=== PATIENT | male | born 1995 | race Hispanic/Latino ===

== ENCOUNTER 2019-07-01 05:00 | Inpatient (IN) | payer BC, OTHER ==
[~2019-07-01] VITALS: Ht 182.9 cm; Wt 122.5 kg
[2019-07-01] MEDS ORDERED: ACETAMINOPHEN 325 MG TAB PO ONE (05:15)
[2019-07-01 05:35] LABS: BASOPHILS % 0.3 % (0.0-1.0); EOSINOPHILS # (AUTO) 0.2 (0.0-0.4); EOSINOPHILS % 1.3 % (0.0-6.0); HEMATOCRIT 48.2 % (38.2-49.6); HEMOGLOBIN 15.8 g/dL (14.0-18.0); LYMPHOCYTES # (AUTO) 3.9 (1.0-3.2); LYMPHOCYTES % 34.1 % (18.0-39.1); MEAN CORPUSCULAR HEMOGLOBIN 29.3 pg (28-32); MEAN CORPUSCULAR HGB CONC 32.8 g/dL (31-35); MEAN CORPUSCULAR VOLUME 89.4 fL (81-99); MONOCYTES # (AUTO) 0.8 (0.2-0.8); MONOCYTES % 6.9 % (4.4-11.3); NEUTROPHILS # (AUTO) 6.6 (2.1-6.9); NEUTROPHILS % 56.9 % (38.7-80.0); PLATELET COUNT 246 x10e3/uL (140-360); RED BLOOD COUNT 5.39 x10e6/uL (4.3-5.7); RED CELL DISTRIBUTION WIDTH 13.1 % (11.7-14.4)
[2019-07-01 05:49] LABS: ANION GAP 12.6 mmol/L (8-16); BLOOD UREA NITROGEN 10 mg/dL (7-26); BUN/CREATININE RATIO 11 (6-25); CALCIUM 9.8 mg/dL (8.4-10.2); CARBON DIOXIDE 27 mmol/L (22-29); CHLORIDE 104 mmol/L (98-107); CREATININE, SERUM 0.92 mg/dL (0.72-1.25); EST GLOMERULAR FILTRATION RATE > 60 ML/MIN (60-); GLUCOSE 114 mg/dL (74-118); POTASSIUM 3.6 mmol/L (3.5-5.1); SODIUM 140 mmol/L (136-145)
[2019-07-01 05:52] LABS: INFLUENZAE A&B ANTIGEN (RAPID) NEGATIVE (NEGATIVE); STREPTOCOCCUS GRP A ANTIGEN NEGATIVE (NEGATIVE)
--- NOTE | 2019-07-01 06:21 | Diagnostic Imaging Report ---
EXAMINATION: CHEST SINGLE (PORTABLE) INDICATION: Short of breath, fever COMPARISON: None FINDINGS: TUBES and LINES: None. LUNGS: Normal lung volumes. Subtle left lower lung haziness. PLEURA: No pleural effusion or pneumothorax. HEART AND MEDIASTINUM: The cardiomediastinal silhouette is unremarkable. BONES AND SOFT TISSUES: No acute osseous lesion. Soft tissues are unremarkable. Left clavicular plate and screw fixation hardware intact. UPPER ABDOMEN: No free air under the diaphragm. IMPRESSION: Subtle left lower lung haziness, possibly due to atelectasis or pneumonia. Signed by: Juan Francisco Cox DO on 07/01/2019 6:18 AM
[2019-07-01] MEDS ORDERED: SODIUM CHLORIDE 0.9% 1000ML 1,000 ML IV ONE (06:30)
[2019-07-01] MEDS ORDERED: SODIUM CHLORIDE 0.9% 1000ML 1,000 ML ONE (06:38)
--- NOTE | 2019-07-01 06:41 | NUR ---
H&P cc: sob/chest discomfort HPI; Pt recently returned from [place] 2 weeks ago, now chest discomfort and sob. No cough; Here febrile and tachycardic; XR shows L. PNA. 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
[2019-07-01] MEDS ORDERED: DOCUSATE SODIUM 100 MG CAP PO PRN (06:45)
[2019-07-01] MEDS ORDERED: ALPRAZOLAM 0.25 MG TAB PO PRN (06:45)
[2019-07-01] MEDS ORDERED: ZOLPIDEM TARTRATE 5 MG TAB PO PRN (06:45)
[2019-07-01] MEDS ORDERED: BENZONATATE 100 MG CAP PO PRN (06:45)
[2019-07-01] MEDS ORDERED: ONDANSETRON HCL INJ 2MG/ML 2ML 2 MG/ML VIAL IV PRN (06:45)
[2019-07-01] MEDS ORDERED: ALBUTEROL/IPRATROPIUM 3 ML NEB NEB PRN (06:45)
[2019-07-01] MEDS ORDERED: ACETAMINOPHEN 325 MG TAB PO PRN (06:45)
[2019-07-01] MEDS ORDERED: GUAIFENESIN/DEXTROMETHORPHAN LIQD 5 ML UDC NG PRN (06:45)
--- OUTSIDE RECORDS SUMMARY | 2019-07-01 06:45 | XMS REPORT ---
Author Author [facility] Address Unknown Phone Unavailable Care Team Providers Care Barber Name Role Phone Nino VENTURA Unavailable Unavailable Problems This patient has no known problems. Allergies, Adverse Reactions, Alerts This patient has no known allergies or adverse reactions. Medications This patient has no known medications. Results Test Description Test Time Test Comments Text Results Atomic Results Result Comments CHEST SINGLE (PORTABLE) 2019-07-01 06:14:00 [facility] [address] [address] Patient Name: TEDDY VALENTINO MR #: [id number] : 1995 Age/Sex: 24/M Req #: [id number] Adm Physician: Ordered by: GRETCHEN VENTURA MD Report #: [id number] Location: ER Room/Bed: Procedure: [id number] DX/CHEST SINGLE (PORTABLE) Exam Date: 07/01/19 Exam Time: 05 REPORT STATUS: Signed EXAMINATION: CHEST SINGLE (PORTABLE) INDICATION: Short of breath, fever COMPARISON: None FINDINGS: TUBES and LINES: None. LUNGS: Normal lung volumes. Subtle left lower lung haziness. PLEURA: No pleural effusion or pneumothorax. HEART AND MEDIASTINUM: The cardiomediastinal silhouette is unremarkable. BONES AND SOFT TISSUES: No acute osseous lesion. Soft tissues are unremarkable. Left clavicular plate and screw fixation hardware intact. UPPER ABDOMEN: No free air under the diaphragm. IMPRESSION: Subtle left lower lung haziness, possibly due to atelectasis or pneumonia. Signed by: Juan Francisco Cox DO on 07/01/2019 6:18 AM Dictated By: JUAN FRANCISCO COX DO 7 Transcribed By: RICHMOND on 07/01/19617 COPY TO: GRETCHEN VENTURA MD
[2019-07-01] MEDS: CEFTRIAXONE SOD 1 GM/NS 50 ML 50 ML IV SCH (06:51)
[2019-07-01 07:09] LABS: CHOL/HDL RATIO 3.9 (3.9-4.7)
[2019-07-01] MEDS: AZITHROMYCIN 500MG/NS 250 ML 250 ML IV SCH (07:14)
[2019-07-01] MEDS: FAMOTIDINE 20 MG TAB PO SCH ×2 (07:55→16:42)
--- NOTE | 2019-07-01 09:04 | NUR ---
CONSULT [id number]
[2019-07-01 09:30] VITALS: BP 154/81
[2019-07-01 09:50] VITALS: BP 154/81
--- NOTE | 2019-07-01 11:42 | Consultation ---
DATE OF CONSULTATION: REASON FOR CONSULTATION: Fever, tachycardia, rule out COVID-19 viral infection, leukocytosis. HISTORY OF PRESENT ILLNESS: This patient is very pleasant 24-year-old male, denies past medical history. He does have underlying history of anxiety. He tells me he does get episodes of tachycardia. He presented with 3 days of tachycardia, not feeling well, feeling really bad. The patient denies specific fever, but he felt feverish. Denies cough. The patient came to emergency room. In the emergency room, he was evaluated, but it was noted that his heart rate is 130s, so he was admitted for further workup. The patient who is currently lying in bed comfortably. PAST MEDICAL HISTORY: Obesity, anxiety and tachycardia. PAST SURGICAL HISTORY: Denies. ALLERGIES: . SOCIAL HISTORY: There is no smoking, drug abuse, or alcohol abuse. FAMILY HISTORY: Unremarkable. REVIEW OF SYSTEMS: Besides tachycardia, not feeling well, feeling feverish. LABORATORY DATA: White count 11.53, hemoglobin 15.8, his platelet 146. The lymphocyte was 3.9. COVID-19 is still pending. His influenza A and B screen was negative. Sodium 140, potassium 3.6, creatinine 0.92. Chest x-ray was done and showed septal left lower lobe haziness, possibly pneumonia. PHYSICAL EXAMINATION: GENERAL: He is currently alert, oriented, does not seem to be acute distress. VITAL SIGNS: Stable, currently afebrile. HEENT: He is not icteric. NECK: Supple. CHEST: Clear. COR: S1, S2. No S3, S4 or murmurs. ABDOMEN: Soft. Bowel sounds present. No tenderness. EXTREMITIES: No edema. SKIN: No rash. IMPRESSION: 1. Tachycardia. 2. Community-acquired pneumonia. 3. Concerned about viral pneumonia. The patient comes in mid of COVID-19. We will put him on droplet isolation until we get the test. We will give Rocephin, azithromycin, IV fluid. He may need Cardiology Evaluation. EKG, echocardiogram, thyroid panel. We will follow. MD ISIDORO Syed/CATALINA /[id number]
[2019-07-01 13:00] VITALS: BP 158/81
[2019-07-01] MEDS ORDERED: IPRATROPIUM/ALBUTEROL SULFATE 4 GM INH INH PRN (14:00)
--- NOTE | 2019-07-01 14:23 | Consultation ---
DATE OF CONSULTATION: Pulmonary Critical Care Consultation CHIEF COMPLAINT: Cough and lightheadedness. HISTORY OF PRESENT ILLNESS: The patient is a 24-year-old man. He did use an inhaler as a small child, but has not used any inhalers in the past 10 years. He apparently noticed some lightheadedness and cough at home. He denied any fevers. When he came to the emergency department, he was found to have a low-grade temperature of 100. PAST MEDICAL HISTORY: 1. Possible history of asthma as a child. 2. No prior history of heart problems. PAST SURGICAL HISTORY: Noncontributory. FAMILY HISTORY: Noncontributory. ALLERGIES: THE PATIENT IS ALLERGIC TO PHENYLEPHRINE AND CHLORPHENIRAMINE REVIEW OF SYSTEMS: He denied fevers at home, although he did have some fever here in the hospital. He does not complain of headache or neck pain. He has not had chest pain. He did note some cough but no dyspnea. He denies any wheezing. He does not complain of abdominal pain. He has no nausea or vomiting. He does not complain of any leg swelling. PHYSICAL EXAMINATION: VITAL SIGNS: The blood pressure is 154/81, saturation is 98%. The pulse is 120 to 130 and the temperature is 99.9. HEENT: Shows no facial swelling or erythema. LYMPHATIC: Shows no submandibular, cervical, or supraclavicular adenopathy. CARDIAC: Reveals tachycardia with a normal S1 and S2. LUNGS: Auscultation of lungs reveals clear breath sounds bilaterally. There is no wheezing. ABDOMEN: Soft and nontender. There is no rebound or guarding. EXTREMITIES: Show no leg edema or calf tenderness. There is no cyanosis or clubbing. SKIN: Shows no rashes. NEUROLOGICAL: Shows no focal abnormalities. LABORATORY DATA: BUN, creatinine, and electrolytes are within normal limits. White blood cell count is 11.5 and the platelet count is 246. Hemoglobin is 15.4. RADIOGRAPHIC DATA: Chest x-ray shows a possible left lower lobe haziness. IMPRESSION: 1. Atypical pneumonia. 2. Tachycardia. 3. Possible COVID-19 infection. PLAN: 1. Continue Zithromax. 2. Judicious use of IV fluids. 3. Monitor heart rate and oxygen saturation. 4. Await coronavirus testing. MD JOSE Garcia/PATYL /[id number]
[2019-07-01 16:30] VITALS: BP 141/75
--- NOTE | 2019-07-01 19:10 | NUR ---
Report received from morning nurse. Pt with no acute distress.
--- NOTE | 2019-07-01 19:20 | NUR ---
Received lab report, Pt with negative SARS-CoV-2 results.
--- NOTE | 2019-07-01 20:34 | NUR ---
PAGE PLACED FOR MD MCKINLEY CONCERNING PT LAB RESULTS FOR CORONAVIRUS. WAITING FOR CALLBACK.
--- NOTE | 2019-07-01 20:45 | NUR ---
RECEIVED PT SITTING ON SIDE OF BED. PT IS AAOX3, RR EVEN AND NON-LABORED, ON ROOM AIR. NO S/SX OF DISTRESS NOTED. PT ASSISTED TO BATHROOM AND BACK TO BED. LEFT PT SITTING ON SIDE OF BED, BED IN LOW LOCKED POSITION, SIDE RAILS UPX2, CALL LIGHT AND PHONE WITHIN REACH.
[2019-07-01 20:48] VITALS: BP 159/82
--- NOTE | 2019-07-01 20:56 | NUR ---
PAGE PLACED FOR MD MCLAUGHLIN CONCERNING COVID-19 RESULTS. WAITING FOR CALLBACK.
--- NOTE | 2019-07-01 21:00 | NUR ---
SPOKE WITH MD MCLAUGHLIN CONCERNING TEST RESULTS. NEW ORDERS RECEIVED TO TRANSFER OFF COVID UNIT TO [facility] AND REMOVE DROPLET PRECAUTIONS. PARKING METER SERVICER NOTIFIED.
--- NOTE | 2019-07-01 21:06 | NUR ---
SPOKE WITH MD MCKINLEY CONCERNING NEW ORDERS RECEIVED FROM MD MCLAUGHLIN. MD MCKINLEY AGREES WITH ORDERS AND OK TO TRANSFER PT TO FLOOR. NOTIFIED MD MCKINLEY ABOUT CARDIAC MARKERS NOT BEING DRAWN DURING DAY. ORDERS RECEIVED TO DRAW ONE SET OF CARDIAC MARKERS AND D/C THE THIRD SET.
--- NOTE | 2019-07-01 21:48 | NUR ---
BLOOD DRAWN FROM (R) FA WITH BUTTERFLY NEEDLE AND VACUTAINER. GREEN AND PURPLE TOP COLLECTED AND DELIVERED TO LABORATORY.
[2019-07-01 22:17] LABS: CREATINE KINASE MB 1.1 ng/mL (0-5.0)
--- NOTE | 2019-07-01 23:33 | NUR ---
PT TRANSPORTED TO ROOM 199. PT IN STABLE CONDITION, NO S/SX OF DISTRESS NOTED. TELEMETRY REMOVED AND RETURNED TO RIPENING ROOM ATTENDANT. IN ROOM ASSESSMENT RN TO BE APPLIED TO PATIENT
--- NOTE | 2019-07-01 23:36 | NUR ---
Received the patient to the unit.v/s stable.afebrile.telemetry showing sinus rhythm.iv to right ac#20 is patent.aaox4.self ambulates.assessment done.no resp distress.no pain voiced.oriented to the unit.bed locked and in lowest position.call light within reach.
[2019-07-02] VITALS (9 sets, daily range): BP systolic 125–136; BP diastolic 66–86
[2019-07-02 04:41] LABS: BASOPHILS % 0.3 % (0.0-1.0); EOSINOPHILS # (AUTO) 0.1 (0.0-0.4); EOSINOPHILS % 0.7 % (0.0-6.0); HEMATOCRIT 44.9 % (38.2-49.6); HEMOGLOBIN 14.3 g/dL (14.0-18.0); LYMPHOCYTES # (AUTO) 3.2 (1.0-3.2); LYMPHOCYTES % 31.1 % (18.0-39.1); MEAN CORPUSCULAR HEMOGLOBIN 28.8 pg (28-32); MEAN CORPUSCULAR HGB CONC 31.8 g/dL (31-35); MEAN CORPUSCULAR VOLUME 90.5 fL (81-99); MONOCYTES # (AUTO) 0.7 (0.2-0.8); MONOCYTES % 7.2 % (4.4-11.3); NEUTROPHILS # (AUTO) 6.2 (2.1-6.9); NEUTROPHILS % 60.3 % (38.7-80.0); PLATELET COUNT 249 x10e3/uL (140-360); RED BLOOD COUNT 4.96 x10e6/uL (4.3-5.7); RED CELL DISTRIBUTION WIDTH 13.2 % (11.7-14.4)
[2019-07-02 05:11] LABS: ALANINE AMINOTRANSFERASE 41 IU/L (0-55); ALBUMIN 3.8 g/dL (3.5-5.0); ALBUMIN/GLOBULIN RATIO 1.1 (0.8-2.0); ALKALINE PHOSPHATASE 78 IU/L (40-150); ANION GAP 10.7 mmol/L (8-16); BLOOD UREA NITROGEN 7 mg/dL (7-26); BUN/CREATININE RATIO 8 (6-25); CALCIUM 9.6 mg/dL (8.4-10.2); CARBON DIOXIDE 25 mmol/L (22-29); CHLORIDE 107 mmol/L (98-107); CREATININE, SERUM 0.83 mg/dL (0.72-1.25); EST GLOMERULAR FILTRATION RATE > 60 ML/MIN (60-); GLUCOSE 98 mg/dL (74-118); POTASSIUM 3.7 mmol/L (3.5-5.1); SODIUM 139 mmol/L (136-145)
--- NOTE | 2019-07-02 05:26 | NUR ---
IM- progress note O/N see below ROS: no N/V/D/anosmia/dizziness/SIMMS/skin rash/back pain/focal limb weakness v/s; revd PE tired appearing anicteric ns1s2 mod bs soft nt nd no e/t skin dry flat affect a&ox3; rodriguez labs/meds revd A/P: Left PNA- IV azithromycin/ceftriaxone; screen for COVID19 Sepsis- ivf and IV abx Obesity- hba1c/lipids BMI 36.6- as above Prop: pepcid; scd dispo: f/u lab testing 4-18 Coronavirus test negative; Tn negative x2; continue IV abx and IVF for sepsis and PNA. Nik Veliz MD, PhD.
[2019-07-02] MEDS: CEFTRIAXONE SOD 1 GM/NS 50 ML 50 ML IV SCH (05:47)
[2019-07-02] MEDS: AZITHROMYCIN 500MG/NS 250 ML 250 ML IV SCH (06:25)
--- NOTE | 2019-07-02 06:51 | NUR ---
Bed side shift report given to oncoming Rn.stable condition.
[2019-07-02] MEDS: FAMOTIDINE 20 MG TAB PO SCH ×2 (07:27→16:30)
--- NOTE | 2019-07-02 20:30 | NUR ---
PATIENT RESTING IN BED COMFORTABLY AOX4, NO SIGNS OF RESPIRATORY DISTRESS NOTED. HEAD OF BED IS ELEVATED AND PATIENT VOICES NO PAIN AT THIS TIME. BED IS IN LOWEST POSITION, BOTH SIDE RAILS ARE UP, CALL LIGHT IS WITHIN EASY REACH, WILL CONTINUE TO MONITOR.
[2019-07-03 04:39] VITALS: BP 134/77
[2019-07-03] MEDS: CEFTRIAXONE SOD 1 GM/NS 50 ML 50 ML IV SCH (05:33)
[2019-07-03] MEDS ORDERED: ZITHROMAX500 MG PO (05:52)
[2019-07-03] MEDS ORDERED: KEFLEX500 MG PO (05:52)
[2019-07-03] MEDS: AZITHROMYCIN 500MG/NS 250 ML 250 ML IV SCH (06:06)
--- NOTE | 2019-07-03 06:55 | NUR ---
Received patient lying in bed with eyes open. Respiration even and unlabored without SOB. Call light in reach.
--- NOTE | 2019-07-03 07:05 | NUR ---
Received patient lying in bed with eyes open. Respiration even and unlabored without SOB. Call light in reach. Addendum: 07/03/19 at 0824 by Olivia Nuno RN Error
[2019-07-03 07:40] VITALS: BP 135/175
--- NOTE | 2019-07-03 08:32 | NUR ---
PIV to right Ac discontinued with catheter intact, no bleeding noted. Transported via wheelchair to private vehicle with all belongings taken.
== END 2019-07-03 08:32 | disposition home or self-care (01) | DRG 871 ==
LOC: ER 05:00 → ERHOLD 06:40 → IMCU 10:02
PROVIDERS: ADMIT Internal Medicine; ATTEND Internal Medicine
DX: A41.9 Sepsis, unspecified organism (principal); J18.9 Pneumonia, unspecified organism; F41.9 Anxiety disorder, unspecified; Z83.3 Family history of diabetes mellitus; Z82.49 Family history of ischemic heart disease and other diseases of the circulatory system; Z88.8 Allergy status to other drugs, medicaments and biological substances; E66.9 Obesity, unspecified; Z68.36 Body mass index [BMI] 36.0-36.9, adult; R00.0 Tachycardia, unspecified
CPT/HCPCS: 36415; 71045; 80048; 80053; 80061; 82550; 82553; 83036; 83518; 84484; 85025; 85379; 87040; 87070; 87400; 87635; 93005; 99284; J0456; J0696; J2405; J7030

== ENCOUNTER 2019-07-20 22:03 | Emergency (ER) | payer BC ==
[~2019-07-20] VITALS: Ht 182.9 cm; Wt 122.5 kg
[~2019-07-20 22:03] MED LIST: KEFLEX500 MG PO; ZITHROMAX500 MG PO
--- NOTE | 2019-07-20 23:58 | Diagnostic Imaging Report ---
EXAMINATION: CHEST 2 VIEWS INDICATION: Short of breath COMPARISON: Chest x-ray 07/01/2019 FINDINGS: TUBES and LINES: None. LUNGS: Normal lung volumes. Lungs are clear. No consolidations. PLEURA: No pleural effusion or pneumothorax. HEART AND MEDIASTINUM: The cardiomediastinal silhouette is unremarkable. BONES AND SOFT TISSUES: Degenerative changes in the spine and shoulders. Soft tissues are unremarkable. Partially visualized left clavicle fixation hardware. UPPER ABDOMEN: No free air under the diaphragm. IMPRESSION: No acute thoracic radiographic abnormality. Signed by: Juan Francisco Cox DO on 07/20/2019 11:55 PM
[2019-07-21] MEDS ORDERED: AMMONIA AROMATIC INHAL 0.33 ML AMP INH ONE (01:38)
== END 2019-07-21 01:02 | disposition home or self-care (01) ==
LOC: ER 22:03
DX: R06.09 Other forms of dyspnea (principal)
CPT/HCPCS: 71046; 99283

== ENCOUNTER 2019-08-09 20:06 | Emergency (ER) | payer BC ==
[~2019-08-09] VITALS: Ht 182.9 cm; Wt 122.5 kg
--- OUTSIDE RECORDS SUMMARY | 2019-08-09 20:07 | XMS REPORT ---
Author Author [facility] t Organization [facility] Address [address] [place] [address] [facility]. [address] [place] [address] Phone Unavailable Care Team Providers Care Legal Financial Specialist Name Role Phone MD SYDNI MCKINLEY PCP Nino VENTURA Attphys Unavailable Payers Payer Name Policy Type Policy Number Effective Date Expiration Date [id number] 2019 00:00:00 [facility] Cdc Review [id number] [facility] Advance Directives Directive Decision Effective Date Termination Date Comments Sour ce Yes N/A [facility] Problems Condition Name Condition Details Condition Category Status Onset Date Resolution Date Last Treatment Date Treating Clinician Comments Source Pneumonia Pneumonia Problem Active [facility] Allergies, Adverse Reactions, Alerts Allergy Name Allergy Type Status Severity Reaction(s) Onset Date Inacti ve Date Treating Clinician Comments Source Phenylephrine Allergy to substance Active Moderate 2019-07-01 00:0 0:00 [facility] Chlorpheniramine Allergy to substance Active Moderate 2019-06-15 7 00:00:00 [facility] Social History Social Habit Start Date Stop Date Quantity Comments Source Sex Assigned At 1995 00:00:00 1995 00:00:00 Male [facility] Medications Ordered Medication Name Filled Medication Name Start Date Stop Da te Current Medication? Ordering Clinician Indication Dosage Frequency Signature (SIG) Comments Components Source Azithromycin (Zithromax) 500 Mg TABLET Azithromycin (Zithrom ax) 500 Mg TABLET 2019-07-03 05:52:00 Yes 500 [facility] Cephalexin Monohydrate (Keflex) 500 Mg CAPSULE Cephale murphy Monohydrate (Keflex) 500 Mg CAPSULE 2019-07-03 05:52:00 Yes 500 [facility] Vital Signs Vital Name Observation Time Observation Value Comments Source Weight 2019-07-20 22:20:00 270 [lb_av] [facility] BMI (Body Mass Index) 2019-07-20 22:20:00 36.6 kg/m2 [facility] Body Temperature 2019-07-03 07:40:00 98.2 [degF] [facility] Procedures Procedure Date / Time Performed Performing Clinician [facility] e X-ray of chest, two views 2019-07-20 00:00:00 [facility] Plan of Care Planned Activity Planned Date Details Comments Source Goal Patient referral [code = 2205675 ] [facility] Instructions Dyspnea [facility] Encounters Start Date/Time End Date/Time Encounter Type Admission Type [facility] Facility Care Department Encounter ID Source 2019-07-20 22:03:00 2019-07-21 01:02:00 Departed Emergency Room 1 [facility] [id number] [facility] 2019-07-01 06:40:00 2019-07-03 08:32:00 Discharged Inpatient 1 VENTURA, GRETCHEN [facility] [id number] [facility] Results Test Description Test Time Test Comments Results Result Comments Source CHEST 2 VIEWS 2019-07-20 23:54:00 [facility] [address] [address] Patient Name: TEDDY VALENTINO JR MR #: [id number] : 1995 Age/Sex: 24/M Req #: [id number] Adm Physician: Ordered by: GRETCHEN VENTURA MD Report #: [id number] Location: ER Room/Bed: Procedure: [id number] DX/CHEST 2 VIEWS Exam Date: 07/20/19 Exam Time: 2250 REPORT STATUS: Signed EXAMINATION: CHEST 2 VIEWS INDICATION: Short of breath COMPARISON: Chest x-ray 07/01/2019 FINDINGS: TUBES and LINES: None. LUNGS: Normal lung volumes. Lungs are clear. No consolidations. PLEURA: No pleural effusion or pneumothorax. HEART AND MEDIASTINUM: The cardiomediastinal silhouette is unremarkable. BONES AND SOFT TISSUES: Degenerative changes in the spine and shoulders. Soft tissues are unremarkable. Partially visualized left clavicle fixation hardware. UPPER ABDOMEN: No free air under the diaphragm. IMPRESSION: No acute thoracic radiographic abnormality. Signed by: Juan Francisco Cox DO on 07/20/2019 11:55 PM Dictated By: JUAN FRANCISCO COX DO 54 Transcribed By: RICHMOND on 07/20/192354 COPY TO: GRETCHEN VENTURA MD Blood leukocytes automated count (number/volume) 2019-07-02 04:15:00 Test Item White Blood Count (test code = 6690-2) 10.32 [facility] erythrocytes automated count (number/volume)2019-07-02 04:15:00* Test Item Value Reference Range Interpretation Comments Red Blood Count (test code = 789-8) 4.96 [facility] hemoglobin measurement (moles/volume)2019-07-02 04:15:00* Test Item Value Reference Range Interpretation Comments Hemoglobin (test code = 93330-3) 14.3 [facility] blood hematocrit (volume fraction)2019-07-02 04:15:00* Test Item Value Reference Range Interpretation Comments Hematocrit (test code = 4544-3) 44.9 [facility] erythrocyte mean corpuscular [id number] 04:15:00* Test Item Value Reference Range Interpretation Comments Mean Corpuscular Volume (test code = 787-2) 90.5 [facility] mean corpuscular hemoglobin (mass per erythrocyte)2019-07-02 04:15:00* Test Item Value Reference Range Interpretation Comments Mean Corpuscular Hemoglobin (test code = 785-6) 28.8 [facility] eryth[facility] mean corpuscular hemoglobin concentration measurement (mass/volume)2019-07-02 04:15:00* Test Item Value Reference Range Interpretation Comments Mean Corpuscular Hemoglobin Concent (test code = 786-4) 31.8 [facility] HospitalRDW CrqRu-Ynf3591-32-18 04:15:00* Test Item Value Reference Range Interpretation Comments Red Cell Distribution Width (test code = 28385-5) 13.2 [facility] blood platelet count (count/volume)2019-07-02 04:15:00* Test Item Value Reference Range Interpretation Comments Platelet Count (test code = 777-3) 249 [facility] neutrophil count as percentage of total cymsmenhqx3120-15-01 04:15:00* Test Item Value Reference Range Interpretation Comments Neutrophils (%) (Auto) (test code = 29597-3) 60.3 [facility] lymphocyte count as percentage ot total jqylruxfxb4941-90-64 04:15:00* Test Item Value Reference Range Interpretation Comments Lymphocytes (%) (Auto) (test code = 736-9) 31.1 [facility] blood monocyte count as percentage of total efriuvokrg9859-82-82 04:15:00* Test Item Value Reference Range Interpretation Comments Monocytes (%) (Auto) (test code = 5905-5) 7.2 [facility] blood eosinophil count as percentage of total gfaoknspfw6235-13-36 04:15:00* Test Item Value Reference Range Interpretation Comments Eosinophils (%) (Auto) (test code = 713-8) 0.7 [facility] basophil count as percentage of total baxlnixnhs6127-71-17 04:15:00* Test Item Value Reference Range Interpretation Comments Basophils (%) (Auto) (test code = 706-2) 0.3 [facility] HospitalFluoroscopic procedure less than one hour tfakknox7503-27-66 04:15:00* Test Item Value Reference Range Interpretation Comments IM GRANULOCYTES % (test code = IM GRANULOCYTES %) 0.4 [facility] blood neutrophil count 2019-07-02 04:15:00* Test Item Value Reference Range Interpretation Comments Neutrophils # (Auto) (test code = 751-8) 6.2 [facility] HospitalBlood lymphocytes count (number/volume) 2019-07-02 04:15:00* Test Item Value Reference Range Interpretation Comments Lymphocytes # (Auto) (test code = 04326-1) 3.2 [facility] monocytes automated count (number/volume)2019-07-02 04:15:00* Test Item Value Reference Range Interpretation Comments Monocytes # (Auto) (test code = 742-7) 0.7 [facility]Autom[facility] blood eosinophil count 2019-07-02 04:15:00* Test Item Value Reference Range Interpretation Comments Eosinophils # (Auto) (test code = 711-2) 0.1 [facility]Autom[facility] blood basophil count (count/volume)2019-07-02 04:15:00* Test Item Value Reference Range Interpretation Comments Basophils # (Auto) (test code = 704-7) 0.0 [facility] HospitalFluoroscopic procedure less than one hour sbzfbztd6400-51-47 04:15:00* Test Item Value Reference Range Interpretation Comments Absolute Immature Granulocyte (auto (zoila t code = Absolute Immature Granulocyte (auto) 0.04 [facility] sodium measurement (moles/volume)2019-07-02 04:15:00* Test Item Value Reference Range Interpretation Comments Sodium Level (test code = 2951-2) 139 [facility] potassium measurement (moles/volume)2019-07-02 04:15:00* Test Item Value Reference Range Interpretation Comments Potassium Level (test code = 2823-3) 3.7 [facility] chloride measurement (moles/volume)2019-07-02 04:15:00* Test Item Value Reference Range Interpretation Comments Chloride Level (test code = 2075-0) 107 [facility] or plasma carbon dioxide, total measurement (moles/volume)2019-07-02 04:15:00* Test Item Value Reference Range Interpretation Comments Carbon Dioxide Level (test code = 2028-9) 25 [facility] Hospitaler[facility] or plasma anion exs9667-81-11 04:15:00* Test Item Value Reference Range Interpretation Comments Anion Gap (test code = 12853-6) 10.7 [facility] plasma urea nitrogen measurement (mass/volume)2019-07-02 04:15:00* Test Item Value Reference Range Interpretation Comments Blood Urea Nitrogen (test code = 3094-0) 7 [facility] creatinine measurement (mass/volume)2019-07-02 04:15:00* Test Item Value Reference Range Interpretation Comments Creatinine (test code = 2160-0) 0.83 [facility] plasma urea nitrogen/creatinine mass ioayr6427-55-82 04:15:00* Test Item Value Reference Range Interpretation Comments BUN/Creatinine Ratio (test code = 3097-3) 8 [facility] HospitalEstimated glomerular filtration rate (GFR) kfrexequfnnqx4566-61-36 04:15:00* Test Item Value Reference Range Interpretation Comments Estimat Glomerular Filtration Rate (test code = 090324153) > 60 [facility] HospitalGlucose fufitetpiof6066-67-54 04:15:00* Test Item Value Reference Range Interpretation Comments Glucose Level (test code = PRK3478) 98 [facility] calcium measurement (mass/volume)2019-07-02 04:15:00* Test Item Value Reference Range Interpretation Comments Calcium Level (test code = 27163-1) 9.6 [facility] plasma total bilirubin measurement (mass/volume)2019-07-02 04:15:00* Test Item Value Reference Range Interpretation Comments Total Bilirubin (test code = 1975-2) 0.9 [facility] HospitalFluoroscopic procedure less than one hour ilqveqoj8639-85-28 04:15:00* Test Item Value Reference Range Interpretation Comments Aspartate Amino Transf (AST/SGOT) (test code = Aspartate Amino Transf (AST/SGOT)) 19 [facility] or plasma alanine aminotransferase measurement (enzymatic activity/volume)2019-07-02 04:15:00* Test Item Value Reference Range Interpretation Comments Alanine Aminotransferase (ALT/SGPT) (test code = 1742-6) 41 [facility] plasma protein measurement (mass/volume)2019-07-02 04:15:00* Test Item Value Reference Range Interpretation Comments Total Protein (test code = 2885-2) 7.3 [facility] albumin measurement (mass/volume)2019-07-02 04:15:00* Test Item Value Reference Range Interpretation Comments Albumin (test code = 1751-7) 3.8 [facility] HospitalPlasma globulin measurement (mass/volume) 2019-07-02 04:15:00* Test Item Value Reference Range Interpretation Comments Globulin (test code = 92091-5) 3.5 [facility] or plasma albumin/globulin mass wvyop4712-74-02 04:15:00* Test Item Value Reference Range Interpretation Comments Albumin/Globulin Ratio (test code = 1759-0) 1.1 [facility] or plasma alkaline phosphatase measurement (enzymatic activity/volume)2019-07-02 04:15:00* Test Item Value Reference Range Interpretation Comments Alkaline Phosphatase (test code = 6768-6) 78 [facility] Hospitalerum or plasma creatine kinase measurement (enzymatic activity/volume)2019-07-01 21:41:00* Test Item Value Reference Range Interpretation Comments Creatine Kinase (test code = 2157-6) 99 [facility] Hospitalerum or plasma creatine kinase MB measurement (mass/volume)2019-07-01 21:41:00* Test Item Value Reference Range Interpretation Comments Creatine Kinase MB (test code = 90494-3) 1.10 [facility] HospitalTroponin I measurement by highly sensitive enzyme zzrcixilgum5408-45-28 21:41:00* Test Item Value Reference Range Interpretation Comments Troponin I (test code = 06972-8) 0.033 [facility] HospitalBlood veblghi5064-49-93 06:29:00* Test Item Value Reference Range Interpretation Comments Blood Culture (test code = 83879103) NO GROWTH AFTER 5 DAYS, FINAL REPORT [facility] HospitalFluoroscopic procedure less than one hour kzeaqpli5485-26-69 06:27:00* Test Item Value Reference Range Interpretation Comments Coronavirus (PCR) (test code = Coronavirus (PCR)) NOT DETECTED [facility] HospitalCHE[facility]INGLE ([facility]ABLE)2019-07-01 06:14:[address] [address] Patient Name: TEDDY VALENTINO JR MR #: [id number] : 1995 Age/Sex: 24/M Req #: [id number] Adm Physician: Ordered by: GRETCHEN VENTURA MD Report #: [id number] Location: ER Room/Bed: Procedur e: [id number] DX/CHEST SINGLE (PORTABLE) Exam Date: 07/01/19 Exam Time: 05 REPORT STAT US: Signed EXAMINATION: CHEST SINGLE (PORTABLE) INDICATION: Sh ort of breath, fever COMPARISON: None FINDINGS: TUBES a nd LINES: None. LUNGS: Normal lung volumes. Subtle left lower lung hazin ess. PLEURA: No pleural effusion or pneumothorax. HEART AND MEDI ASTINUM: The cardiomediastinal silhouette is unremarkable. BONES AND SOFT TISSUES: No acute osseous lesion. Soft tissues are unremarkable. Left clavi cular plate and screw fixation hardware intact. UPPER ABDOMEN: No free air under the diaphragm. IMPRESSION: Subtle left lower lung haziness, po ssibly due to atelectasis or pneumonia. Signed by: Juan Francisco Cox DO on 07/01/2019 6:18 AM Dictated By: JUAN FRANCISCO COX DO 7 Transcribed By: RICHMOND on 07/01/19617 COPY TO: GRETCHEN VENTURA MD Fluoroscopic procedure less than one hour rgklzmwo9298-09-41 05:28:00* Test Item Value Reference Range Interpretation Comments Hemoglobin A1c Percent (test code = Hemoglobin A1c Percent) 5.4 [facility] triglyceride measurement (mass/volume)2019-07-01 05:28:00* Test Item Value Reference Range Interpretation Comments Triglycerides Level (test code = 2571-8) 171 [facility]er[facility] plasma cholesterol measurement (mass/volume)2019-07-01 05:28:00* Test Item Value Reference Range Interpretation Comments Cholesterol Level (test code = 2093-3) 133 [facility] cholesterol in LDL measurement (mass/volume)2019-07-01 05:28:00* Test Item Value Reference Range Interpretation Comments LDL Cholesterol (test code = 2089-1) 65 [facility] cholesterol in HDL measurement (mass/volume)2019-07-01 05:28:00* Test Item Value Reference Range Interpretation Comments HDL Cholesterol (test code = 2085-9) 34 [facility] or plasma total cholesterol/cholesterol in HDL mass pcaox8502-36-51 05:28:00* Test Item Value Reference Range Interpretation Comments Cholesterol/HDL Ratio (test code = 9830-1) 3.9 [facility] HospitalFibrin D-dimer DDU measurement in platelet poor plasma (mass/volume)2019-07-01 05:18:00* Test Item Value Reference Range Interpretation Comments D-Dimer Quantitative (PE/DVT) (test code = 86455-9) < 100 [facility] HospitalInfluenza virus A and B antigen identification by rwdplpihbrjbqrfyna9759-58-49 05:16:00* Test Item Value Reference Range Interpretation Comments Influenza Virus Types A,B Antigen (test code = 30808-2) NEGATIVE [facility] Hospitaltreptococcus pyogenes antigen detection in btguvo8314-04-53 05:16:00* Test Item Value Reference Range Interpretation Comments Group A Streptococcus Screen (test code = 47463-9) NEGATIVE [facility]
[2019-08-09] MEDS ORDERED: SODIUM CHLORIDE 0.9% 1000ML 1,000 ML IV ONE (20:45)
[2019-08-09] MEDS ORDERED: ASPIRIN 81 MG CHEW TAB PO ONE (20:45)
[2019-08-09 20:53] LABS: BASOPHILS % 0.3 % (0.0-1.0); EOSINOPHILS # (AUTO) 0.1 (0.0-0.4); EOSINOPHILS % 1.3 % (0.0-6.0); HEMATOCRIT 47.2 % (38.2-49.6); HEMOGLOBIN 15.5 g/dL (14.0-18.0); LYMPHOCYTES # (AUTO) 2.1 (1.0-3.2); LYMPHOCYTES % 22.4 % (18.0-39.1); MEAN CORPUSCULAR HEMOGLOBIN 28.9 pg (28-32); MEAN CORPUSCULAR HGB CONC 32.8 g/dL (31-35); MEAN CORPUSCULAR VOLUME 87.9 fL (81-99); MONOCYTES # (AUTO) 0.7 (0.2-0.8); MONOCYTES % 7.5 % (4.4-11.3); NEUTROPHILS # (AUTO) 6.4 (2.1-6.9); NEUTROPHILS % 68.2 % (38.7-80.0); PLATELET COUNT 227 x10e3/uL (140-360); RED BLOOD COUNT 5.37 x10e6/uL (4.3-5.7); RED CELL DISTRIBUTION WIDTH 13.4 % (11.7-14.4)
--- NOTE | 2019-08-09 21:04 | Emergency Department Note ---
History of Present Illnes History of Present Illness Chief Complaint: Respiratory History of Present Illness This is a 24 year old male presents with c/o palpitations and sob for 1 hour, states he has anxiety, also reports taking a pre work out energy supplement earlier today . Historian: Patient Arrival Mode: Car Onset (how long ago): hour(s) (1) Location: chest Quality: palpitations, sob, anxiety Radiation: non-radiation Severity: moderate Onset quality: sudden Duration (how long): hour(s) (1) Progression: waxing and waning Chronicity: recurrent Context: recent illness Relieving factors: none Exacerbating factors: none Associated symptoms: denies other symptoms Past Medical/Family History Physician Review I have reviewed the patient's past medical and family history. Any updates have been documented here. Past Medical History Recent Fever: No Clinical Suspicion of Infectio: No New/Unexplained Change in Ment: No Past Medical History: None Past Surgical History: None Other Surgery: LT COLLAR BONE SX - PLATE PLACED Social History Smoking Cessation: Never Smoker Alcohol Use: None Any Illegal Drug Use: No Family History Family history of heart diseas: No Other Last Tetanus: UTD Review of Systems Review of Systems Constitutional: no symptoms EENTM: no symptoms Cardiovascular: as per HPI Respiratory: as per HPI Gastrointestinal: no symptoms Genitourinary: no symptoms Musculoskeletal: no symptoms Neurological: no symptoms Psychological: no symptoms Endocrine: no symptoms Hematological/Lymphatic: no symptoms Review of other systems All other systems reviewed and negative. Physical Exam Related Data Allergies: Coded Allergies: chlorpheniramine (Verified Allergy, Intermediate, 07/01/19) phenylephrine (Verified Allergy, Intermediate, 07/01/19) Triage Vital Signs Vital Signs Date Time Temp Pulse Resp B/P (MAP) Pulse Ox O2 Delivery O2 Flow Rate FiO2 08/09/19 20:35 98.2 115 18 125/93 99 Vital signs reviewed: Yes Physical Exam CONSTITUTIONAL Constitutional: well-developed, well-nourished, other (anxious) HENT HENT: normocephalic, atraumatic, oropharynx clear/moist, nose normal HENT L/R: left ext ear normal, right ext ear normal EYES Eyes: PERRL, conjunctivae normal NECK Neck: ROM normal PULMONARY Pulmonary: effort normal, breath sounds normal CARDIOVASCULAR Cardiovascular: regular rhythm, heart sounds normal, capillary refill normal, tachycardia (115) GASTROINTESTINAL Abdominal: soft, nontender, bowel sounds normal GENITOURINARY Genitourinary: exam deferred SKIN Skin: warm, dry MUSCULOSKELETAL Musculoskeletal: ROM normal NEUROLOGICAL Neurological: alert, oriented x 3, no gross motor or sensory deficits PSYCHOLOGICAL Psychological: mood/affect normal, judgement normal Results Laboratory Laboratory Laboratory Tests Test 08/09/19 20:51 08/09/19 20:44 Urine Color Yellow (YELLOW) Urine Clarity Clear (CLEAR) Urine pH 7.5 (5 - 7) Urine Specific [place] 1.020 (1.010-1.025) Urine Protein Negative (NEGATIVE) Urine Glucose (UA) Negative (NEGATIVE) Urine Ketones Negative (NEGATIVE) Urine Blood Negative (NEGATIVE) Urine Nitrite Negative (NEGATIVE) Urine Bilirubin Negative (NEGATIVE) Urine Urobilinogen 0.2 mg/dL (0.2 - 1) Urine Leukocyte Esterase Negative (NEGATIVE) Urine RBC None /HPF (0-5) Urine WBC None /HPF (0-5) Urine Epithelial Cells None /LPF (NONE) Urine Bacteria None /HPF (NONE) Urine Opiates Screen Negative (NEGATIVE) Urine Methadone Screen Negative (NEGATIVE) Urine Barbiturates Screen Negative (NEGATIVE) Urine Phencyclidine Screen Negative (NEGATIVE) Urine Amphetamines Screen Negative (NEGATIVE) Urine Methamphetamines Screen Negative (NEGATIVE) Urine Benzodiazepines Screen Negative (NEGATIVE) Urine Cocaine Screen Negative (NEGATIVE) Urine Cannabinoids Screen Negative (NEGATIVE) White Blood Count 9.44 x10e3/uL (4.8-10.8) Red Blood Count 5.37 x10e6/uL (4.3-5.7) Hemoglobin 15.5 g/dL (14.0-18.0) Hematocrit 47.2 % (38.2-49.6) Mean Corpuscular Volume 87.9 fL (81-99) Mean Corpuscular Hemoglobin 28.9 pg (28-32) Mean Corpuscular Hemoglobin Concent 32.8 g/dL (31-35) Red Cell Distribution Width 13.4 % (11.7-14.4) Platelet Count 227 x10e3/uL (140-360) Neutrophils (%) (Auto) 68.2 % (38.7-80.0) Lymphocytes (%) (Auto) 22.4 % (18.0-39.1) Monocytes (%) (Auto) 7.5 % (4.4-11.3) Eosinophils (%) (Auto) 1.3 % (0.0-6.0) Basophils (%) (Auto) 0.3 % (0.0-1.0) Neutrophils # (Auto) 6.4 (2.1-6.9) Lymphocytes # (Auto) 2.1 (1.0-3.2) Monocytes # (Auto) 0.7 (0.2-0.8) Eosinophils # (Auto) 0.1 (0.0-0.4) Basophils # (Auto) 0.0 (0.0-0.1) Absolute Immature Granulocyte (auto 0.03 x10e3/uL (0-0.1) D-Dimer Quantitative (PE/DVT) 0.74 ug/mLFEU (0.00-0.45) Sodium Level 141 mmol/L (136-145) Potassium Level 3.3 mmol/L (3.5-5.1) Chloride Level 107 mmol/L (98-107) Carbon Dioxide Level 22 mmol/L (22-29) Anion Gap 15.3 mmol/L (8-16) Blood Urea Nitrogen 10 mg/dL (7-26) Creatinine 1.01 mg/dL (0.72-1.25) Estimat Glomerular Filtration Rate > 60 ML/MIN (60-) BUN/Creatinine Ratio 10 (6-25) Glucose Level 99 mg/dL (74-118) Calcium Level 9.9 mg/dL (8.4-10.2) Total Bilirubin 0.8 mg/dL (0.2-1.2) Aspartate Amino Transf (AST/SGOT) 26 IU/L (5-34) Alanine Aminotransferase (ALT/SGPT) 52 IU/L (0-55) Alkaline Phosphatase 85 IU/L (40-150) Creatine Kinase 168 IU/L (30-200) Creatine Kinase MB 0.90 ng/mL (0-5.0) Troponin I 0.031 ng/mL (0-0.300) Total Protein 8.3 g/dL (6.5-8.1) Albumin 4.4 g/dL (3.5-5.0) Globulin 3.9 g/dL (2.3-3.5) Albumin/Globulin Ratio 1.1 (0.8-2.0) Laboratory Tests Test 08/09/19 20:44 Lab results reviewed: Yes Imaging Imaging results reviewed: Yes Impressions EXAMINATION: CHEST SINGLE (PORTABLE) INDICATION: Short of breath, palpitations COMPARISON: Chest x-ray 07/20/2019 FINDINGS: TUBES and LINES: None. LUNGS: Normal lung volumes. Lungs are clear. No consolidations. PLEURA: No pleural effusion or pneumothorax. HEART AND MEDIASTINUM: The cardiomediastinal silhouette is unremarkable. BONES AND SOFT TISSUES: No acute osseous lesion. Soft tissues are unremarkable. Intact left clavicle fixation hardware. UPPER ABDOMEN: No free air under the diaphragm. IMPRESSION: No acute thoracic radiographic abnormality. Signed by: Juan Francisco Cox DO on 08/09/2019 9:49 PM EXAM: CT Chest WITH contrast (PE Protocol) INDICATION: Hard time breathing, Palpitations, elevated d-dimer COMPARISON: None TECHNIQUE: Chest was scanned utilizing a multidetector helical scanner from the lung apex through the level of the diaphragm after administration of IV contrast. Thin section reconstructions were obtained with special concentration on the pulmonary arteries. Coronal and sagittal reformations were obtained. Pulmonary embolism protocol was performed. IV CONTRAST: 75 mL of Isovue 370 COMPLICATIONS: None RADIATION DOSE: Total DLP: 588 mGy*cm Estimated effective dose: (DLP x 0.014 x size factor) mSv CTDIvol has been reviewed. It is below the limits set by the Radiation Protocol Committee (RPC). Dose modulation, iterative reconstruction, and/or weight based adjustment of the mA/kV was utilized to reduce the radiation dose to as low as reasonably achievable. FINDINGS: LINES/ TUBES: None. LUNGS AND AIRWAYS: No filling defect is identified within the pulmonary arteries to the segmental level. The lungs are unremarkable. Airways are normal. PLEURA: The pleural spaces are clear. HEART AND MEDIASTINUM: The thyroid gland is normal. No mediastinal, hilar or axillary lymphadenopathy. The heart is normal in size. There is no pericardial effusion. . Main pulmonary artery measures 3.4 cm in diameter, mildly dilated, and the ascending aorta measures 3.2 cm., Within normal limits UPPER ABDOMEN: The liver is hypodense relative to the spleen. Unremarkable BONES: Partially visualized left clavicle fixation hardware appears intact. SOFT TISSUES: Unremarkable. IMPRESSION: No pulmonary embolus identified, however suboptimal synchronization of contrast bolus injection with scan timing limits limits pulmonary arterial evaluation. Mild main pulmonary artery dilation can be due to pulmonary hypertension, correlate for obstructive sleep apnea or obesity hypoventilation syndrome. Hepatic steatosis. Signed by: Juan Francisco Cox DO on 08/09/2019 11:40 PM Dictated By: JUAN FRANCISCO COX DO 39 Transcribed By: RICHMOND on 08/09/192339 COPY TO: GRETCHEN VENTURA MD~ Procedures 12 Lead ECG Interpretation Laborer Rags: Interpreted by ED physician Rhythm: sinus tachycardia Rate: tachycardia BPM: 110 QRS axis: normal ST segments normal: No T waves normal: Yes Other findings: no other findings (non specific st changes) Clinical Impression: abnormal ECG Critical Care Time Subsequent provider I assumed direction of critical care for this patient from another provider of my specialty. Assessment & Plan Reassessment Reassessment time: 23:57 Reassessment pt feels better, no longer feels anxious, still with heart rate of 108 Assessment & Plan Final Impression: (1) Palpitations (2) Anxiety Assessment & Plan pt with palpitations, sob and anxiety, cbc, cmp, ekg, cardiac enzymes, d-dimer, cxr ordered to eval for pneumonia, myocardial infarction, pulmonary embolism, electrolyte abnormality pt with a positive d-dimer, ct chest pe protocol ordered to eval for pulmonary embolism pt with palpitations and anxiety, discharge home follow up with pcp Depart Disposition: HOME, SELF-CARE Last Vital Signs Date Time Temp Pulse Resp B/P (MAP) Pulse Ox O2 Delivery O2 Flow Rate FiO2 08/09/19 20:35 98.2 115 18 125/93 99 Home Meds Active Scripts Cephalexin Monohydrate (KEFLEX) 500 Mg Capsule, 500 MG PO Q12H for 5 Days Prov:SYDNI MCKINLEY MD 07/03/19 Azithromycin (ZITHROMAX) 500 Mg Tablet, 500 MG PO DAILY, #5 Prov:SYDNI MCKINLEY MD 07/03/19 Medications in the ED Aspirin 81 mg PRN ONCE PO ; Start 08/09/19 at 20:45; Stop 08/09/19 at 20:50; Status DC Sodium Chloride 1,000 ml @ 999 mls/hr Q1H1M ONCE IV ; Start 08/09/19 at 20:45; Stop 08/09/19 at 21:45 GRETCHEN VENTURA MD August 09, 2019 21:04
[2019-08-09 21:16] LABS: ALANINE AMINOTRANSFERASE 52 IU/L (0-55); ALBUMIN 4.4 g/dL (3.5-5.0); ALBUMIN/GLOBULIN RATIO 1.1 (0.8-2.0); ALKALINE PHOSPHATASE 85 IU/L (40-150); ANION GAP 15.3 mmol/L (8-16); BLOOD UREA NITROGEN 10 mg/dL (7-26); BUN/CREATININE RATIO 10 (6-25); CALCIUM 9.9 mg/dL (8.4-10.2); CARBON DIOXIDE 22 mmol/L (22-29); CHLORIDE 107 mmol/L (98-107); CREATINE KINASE 168 IU/L (30-200); CREATININE, SERUM 1.01 mg/dL (0.72-1.25); EST GLOMERULAR FILTRATION RATE > 60 ML/MIN (60-); GLUCOSE 99 mg/dL (74-118); POTASSIUM 3.3 mmol/L (3.5-5.1); SODIUM 141 mmol/L (136-145)
[2019-08-09] MEDS ORDERED: POTASSIUM CHLORIDE 20 MEQ TAB CR PO STA (21:43)
[2019-08-09 21:45] LABS: AMPHETAMINES SCREEN,URINE NEGATIVE (NEGATIVE); CLARITY,URINE CLEAR (CLEAR); COLOR,URINE YELLOW (YELLOW); KETONES,URINE NEGATIVE (NEGATIVE); LEUKOCYTE ESTERASE ,URINE NEGATIVE (NEGATIVE); NITRITE,URINE NEGATIVE (NEGATIVE); PHENCYCLIDINE SCREEN,URINE NEGATIVE (NEGATIVE); PROTEIN,URINE DIPSTICK NEGATIVE (NEGATIVE)
[2019-08-09 21:46] LABS: BENZODIAZEPINES SCREEN,URINE NEGATIVE (NEGATIVE); BILIRUBIN,URINE NEGATIVE (NEGATIVE); URINE UROBILINOGEN 0.2 mg/dL (0.2 - 1)
--- NOTE | 2019-08-09 21:52 | Diagnostic Imaging Report ---
EXAMINATION: CHEST SINGLE (PORTABLE) INDICATION: Short of breath, palpitations COMPARISON: Chest x-ray 07/20/2019 FINDINGS: TUBES and LINES: None. LUNGS: Normal lung volumes. Lungs are clear. No consolidations. PLEURA: No pleural effusion or pneumothorax. HEART AND MEDIASTINUM: The cardiomediastinal silhouette is unremarkable. BONES AND SOFT TISSUES: No acute osseous lesion. Soft tissues are unremarkable. Intact left clavicle fixation hardware. UPPER ABDOMEN: No free air under the diaphragm. IMPRESSION: No acute thoracic radiographic abnormality. Signed by: Juan Francisco Cox DO on 08/09/2019 9:49 PM
[2019-08-09] MEDS ORDERED: SODIUM CHLORIDE 0.9% 50ML 50 ML ONE (23:04)
[2019-08-09] MEDS ORDERED: IOPAMIDOL 370 MG/ML 200 ML INFUS..BTL INJ ONE (23:05)
--- NOTE | 2019-08-09 23:43 | Diagnostic Imaging Report ---
EXAM: CT Chest WITH contrast (PE Protocol) INDICATION: Hard time breathing, Palpitations, elevated d-dimer COMPARISON: None TECHNIQUE: Chest was scanned utilizing a multidetector helical scanner from the lung apex through the level of the diaphragm after administration of IV contrast. Thin section reconstructions were obtained with special concentration on the pulmonary arteries. Coronal and sagittal reformations were obtained. Pulmonary embolism protocol was performed. IV CONTRAST: 75 mL of Isovue 370 COMPLICATIONS: None RADIATION DOSE: Total DLP: 588 mGy*cm Estimated effective dose: (DLP x 0.014 x size factor) mSv CTDIvol has been reviewed. It is below the limits set by the Radiation Protocol Committee (RPC). Dose modulation, iterative reconstruction, and/or weight based adjustment of the mA/kV was utilized to reduce the radiation dose to as low as reasonably achievable. FINDINGS: LINES/ TUBES: None. LUNGS AND AIRWAYS: No filling defect is identified within the pulmonary arteries to the segmental level. The lungs are unremarkable. Airways are normal. PLEURA: The pleural spaces are clear. HEART AND MEDIASTINUM: The thyroid gland is normal. No mediastinal, hilar or axillary lymphadenopathy. The heart is normal in size. There is no pericardial effusion. . Main pulmonary artery measures 3.4 cm in diameter, mildly dilated, and the ascending aorta measures 3.2 cm., Within normal limits UPPER ABDOMEN: The liver is hypodense relative to the spleen. Unremarkable BONES: Partially visualized left clavicle fixation hardware appears intact. SOFT TISSUES: Unremarkable. IMPRESSION: No pulmonary embolus identified, however suboptimal synchronization of contrast bolus injection with scan timing limits limits pulmonary arterial evaluation. Mild main pulmonary artery dilation can be due to pulmonary hypertension, correlate for obstructive sleep apnea or obesity hypoventilation syndrome. Hepatic steatosis. Signed by: Juan Francisco Cox DO on 08/09/2019 11:40 PM
[2019-08-10 00:19] VITALS: BP 132/84
== END 2019-08-10 00:27 | disposition home or self-care (01) ==
LOC: ER 20:06
DX: R00.2 Palpitations (principal); R06.02 Shortness of breath; F41.9 Anxiety disorder, unspecified
CPT/HCPCS: 36415; 71045; 71260; 80053; 80307; 81001; 82550; 82553; 84484; 85025; 85379; 93005; 99284; J7030; Q9967